=== PATIENT | male | born 1960 | race Hispanic/Latino ===

== ENCOUNTER 2019-03-18 14:36 | Emergency (ER) | payer BC ==
[~2019-03-18] VITALS: Ht 167.6 cm; Wt 117.9 kg
[2019-03-18 15:03] VITALS: BP 138/87
== END 2019-03-18 15:05 | disposition home or self-care (01) ==
LOC: ER 14:36
DX: Z76.0 Encounter for issue of repeat prescription (principal)
CPT/HCPCS: 99282

== ENCOUNTER 2019-09-19 05:22 | Emergency (ER) | payer BC ==
[~2019-09-19] VITALS: Ht 167.6 cm; Wt 117.9 kg
[2019-09-19 06:35] LABS: BILIRUBIN,URINE NEGATIVE (NEGATIVE); CLARITY,URINE CLEAR (CLEAR); COLOR,URINE YELLOW (YELLOW); KETONES,URINE NEGATIVE (NEGATIVE); LEUKOCYTE ESTERASE ,URINE NEGATIVE (NEGATIVE); NITRITE,URINE NEGATIVE (NEGATIVE); PROTEIN,URINE DIPSTICK TRACE (NEGATIVE); URINE UROBILINOGEN 0.2 mg/dL (0.2 - 1)
--- NOTE | 2019-09-19 06:42 | NUR ---
CALLED ULTRASOUND FOR STAT ULTRASOUND DONE PER MD
[2019-09-19 06:53] LABS: BACTERIA,URINE FEW /HPF; EPITHELIAL CELLS,URINE FEW /LPF; RBC,URINE 0-5 /HPF (0-5); WBC,URINE (MAN) 0-5 /HPF (0-5)
[2019-09-19 08:19] LABS: BASOPHILS % 0.6 % (0.0-1.0); EOSINOPHILS # (AUTO) 0.3 (0.0-0.4); EOSINOPHILS % 3.6 % (0.0-6.0); HEMATOCRIT 41.8 % (38.2-49.6); HEMOGLOBIN 14.7 g/dL (14.0-18.0); LYMPHOCYTES # (AUTO) 2.1 (1.0-3.2); LYMPHOCYTES % 29.8 % (18.0-39.1); MEAN CORPUSCULAR HEMOGLOBIN 31.2 pg (28-32); MEAN CORPUSCULAR HGB CONC 35.2 g/dL (31-35); MEAN CORPUSCULAR VOLUME 88.7 fL (81-99); MONOCYTES # (AUTO) 0.5 (0.2-0.8); MONOCYTES % 7.3 % (4.4-11.3); NEUTROPHILS # (AUTO) 4.1 (2.1-6.9); NEUTROPHILS % 58.3 % (38.7-80.0); PLATELET COUNT 247 x10e3/uL (140-360); RED BLOOD COUNT 4.71 x10e6/uL (4.3-5.7); RED CELL DISTRIBUTION WIDTH 13.4 % (11.7-14.4)
[2019-09-19 08:27] LABS: INR 1.02; PROTHROMBIN TIME 13.9 seconds (11.9-14.5)
[2019-09-19 08:28] LABS: PARTIAL THROMBOPLASTIN TIME 35.4 seconds (23.8-35.5)
--- NOTE | 2019-09-19 08:34 | Diagnostic Imaging Report ---
EXAM: Scrotal Ultrasound with Duplex INDICATION: HARD BALL NOTICED TO TESTICLE/PAIN/CANT VOID WELL ^[id number] ^[id number] COMPARISON: None TECHNIQUE: Transverse and longitudinal images were obtained of the scrotum with grayscale imaging, color Doppler and spectral waveform analysis. FINDINGS: Right testis: Size: 4.1 x 2.3 x 3 cm, normal in size. Echogenicity: Normal Mass/Cysts: None Left testis: Size: 4 x 1.8 x 2.8 cm, normal in size. Echogenicity: Normal Mass/Cysts: None Epididymis: Appearance: Not grossly abnormal. Mass/Cysts: None Extratesticular: Masses: None Hydrocele: Trace bilateral Varicocele: Mild right Doppler: Normal arterial flow to both testes and symmetrical flow on color Doppler evaluation is seen. No evidence of testicular torsion. IMPRESSION: 1. No evidence of testicular torsion. 2. Mild right varicocele. Signed by: Skyler Lara DO on 09/19/2019 8:31 AM
--- NOTE | 2019-09-19 08:34 | Diagnostic Imaging Report ---
EXAM: Scrotal Ultrasound with Duplex INDICATION: HARD BALL NOTICED TO TESTICLE/PAIN/CANT VOID WELL ^[id number] ^[id number] COMPARISON: None TECHNIQUE: Transverse and longitudinal images were obtained of the scrotum with grayscale imaging, color Doppler and spectral waveform analysis. FINDINGS: Right testis: Size: 4.1 x 2.3 x 3 cm, normal in size. Echogenicity: Normal Mass/Cysts: None Left testis: Size: 4 x 1.8 x 2.8 cm, normal in size. Echogenicity: Normal Mass/Cysts: None Epididymis: Appearance: Not grossly abnormal. Mass/Cysts: None Extratesticular: Masses: None Hydrocele: Trace bilateral Varicocele: Mild right Doppler: Normal arterial flow to both testes and symmetrical flow on color Doppler evaluation is seen. No evidence of testicular torsion. IMPRESSION: 1. No evidence of testicular torsion. 2. Mild right varicocele. Signed by: Skyler Lara DO on 09/19/2019 8:31 AM
[2019-09-19 08:35] LABS: ALANINE AMINOTRANSFERASE 35 IU/L (0-55); ALBUMIN 4.1 g/dL (3.5-5.0); ALBUMIN/GLOBULIN RATIO 1.1 (0.8-2.0); ALKALINE PHOSPHATASE 37 IU/L (40-150); ANION GAP 9.8 mmol/L (8-16); BLOOD UREA NITROGEN 16 mg/dL (7-26); BUN/CREATININE RATIO 20 (6-25); CALCIUM 10.3 mg/dL (8.4-10.2); CARBON DIOXIDE 23 mmol/L (22-29); CHLORIDE 105 mmol/L (98-107); CREATININE, SERUM 0.81 mg/dL (0.72-1.25); EST GLOMERULAR FILTRATION RATE > 60 ML/MIN (60-); GLUCOSE 91 mg/dL (74-118); POTASSIUM 3.8 mmol/L (3.5-5.1); SODIUM 134 mmol/L (136-145)
[2019-09-19 09:33] VITALS: BP 133/78
== END 2019-09-19 09:31 | disposition home or self-care (01) ==
LOC: ER 05:22
DX: R31.9 Hematuria, unspecified (principal); N50.811 Right testicular pain; N44.00 Torsion of testis, unspecified; I86.1 Scrotal varices; N40.0 Benign prostatic hyperplasia without lower urinary tract symptoms; I10 Essential (primary) hypertension; E78.5 Hyperlipidemia, unspecified; E03.9 Hypothyroidism, unspecified; Z96.653 Presence of artificial knee joint, bilateral
CPT/HCPCS: 36415; 76870; 80053; 81001; 85025; 85610; 85730; 93976; 99283

== ENCOUNTER 2021-12-20 15:03 | Emergency (ER) | payer BC, OTHER ==
[~2021-12-20] VITALS: Ht 167.6 cm; Wt 117.9 kg
[2021-12-20 16:24] LABS: CLARITY,URINE SL CLOUDY (CLEAR); COLOR,URINE YELLOW (YELLOW); KETONES,URINE NEGATIVE (NEGATIVE); LEUKOCYTE ESTERASE ,URINE SMALL (NEGATIVE); NITRITE,URINE NEGATIVE (NEGATIVE); PROTEIN,URINE DIPSTICK >=300 (NEGATIVE); URINE UROBILINOGEN 0.2 mg/dL (0.2 - 1)
[2021-12-20 16:32] LABS: BACTERIA,URINE MODERATE /HPF; EPITHELIAL CELLS,URINE FEW /LPF
[2021-12-20 17:09] VITALS: BP 154/84
== END 2021-12-20 17:05 | disposition home or self-care (01) ==
LOC: ER 15:08
DX: N39.0 Urinary tract infection, site not specified (principal); R30.0 Dysuria; I10 Essential (primary) hypertension; E78.5 Hyperlipidemia, unspecified; E03.9 Hypothyroidism, unspecified; Z96.653 Presence of artificial knee joint, bilateral
CPT/HCPCS: 81001; 87086; 87186; 99283

== ENCOUNTER → 2023-05-19 | Outpatient (CLI) | payer MEDICARE, OTHER | LOC: CT 15:50 | PROVIDERS: ATTEND Family Medicine | DX: Z09 Encounter for follow-up examination after completed treatment for conditions other than malignant neoplasm (principal); I50.31 Acute diastolic (congestive) heart failure; R06.02 Shortness of breath; I51.7 Cardiomegaly | CPT/HCPCS: 71250 ==